=== PATIENT | female | born 1985 | race American Indian/Alaskan Native ===

== ENCOUNTER 2018-06-10 06:06 | Day surgery (SDC) | payer BC, OTHER ==
[~2018-06-10 06:06] MED LIST: LACTATED RINGERS 1,000 ML IV SCH; VERSED IV NR
[2018-06-10] MEDS ORDERED: NACL BACTERIOSTATIC INFILTRATI ONE (06:43)
--- NOTE | 2018-06-10 07:10 | Short Stay Summary ---
Short Stay Documentation Date of service: 06/10/18 Narrative H&P: Pt is a 33yo BF G0 LMP 02/23/18 presents for surgical evaluation of Dysfunctional Uterine Bleeding. Pelvic u/s showed an enlarged uterus 10 x 6 x 5cm with a thickened endometrium - pt unable to tolerate in-office endometrial biopsy. She is therefore scheduled for a Hysteroscopy with D&C. - History Principal diagnosis: Dysfunctional Uterine Bleeding H&P: obtained from office Past Medical History: hypertension Past Surgical History: No surgical history Social history: no significant social history, single - Allergies and Medications Current Medications: Allergies pineapple [Pineapple] Allergy (Verified 08/26/13 23:59) Swelling Home Medications Medication Instructions Recorded Confirmed Last Taken Type Clonidine 0.2 mg PO DAILY 05/15/18 06/10/18 06/09/18 History Iron 1 tab PO DAILY 05/15/18 06/10/18 1 Week Ago History ~06/03/18 Losartan-Hctz 100-25 mg Tab 100 mg PO DAILY 05/15/18 06/10/18 06/09/18 History Vitamin B12 1 tab PO DAILY 05/15/18 06/10/18 06/06/18 History amLODIPine 10 mg PO DAILY 05/15/18 06/10/18 06/10/18 05:00 History Active Medications Lactated Ringer's (Lactated Ringers) 1,000 mls @ 100 mls/hr IV DIRECT DAYA Midazolam HCl (Versed) 2 mg IV PREOP NR Stop: 06/10/18 23:59 - Physical exam General appearance: no acute distress Integumentary: no rash HEENT: Atraumatic Lungs: Clear to auscultation Breasts: deferred Heart: Regular rate Gastrointestinal: normal Female Genitourinary: deferred Rectal Exam: deferred Extremities: no ischemia Neurological: Normal gait, Normal speech - Brief post op/procedure progress note Date of procedure: 06/10/18 Pre-op diagnosis: Dysfunctional uterine bleeding Post-op diagnosis: same Procedure: 1. Hysteroscopy 2. Dilatation and curettage Anesthesia: MAC Findings: An enlarged uterus sounded to 10 cm. Lush amount of endometrial tissue and possible endometrial polyp. Surgeon: MYLES NGUYỄN Estimated blood loss: minimal Specimen disposition: to lab Condition: stable - Hospital course Hospital course: Unremarkable. - Disposition Condition at discharge: Good Disposition: DC-01 TO HOME OR SELFCARE - Discharge Diagnoses (1) DUB (dysfunctional uterine bleeding) Status: Chronic (2) Chronic blood loss anemia Status: Chronic Short Stay Discharge Plan Activity: no restrictions Diet: regular Follow up with: PRIMARY CARE, [Primary Care Provider] - 7 Days MYLES NGUYỄN MD [Staff Physician] - 14 Days Forms: Outpatient Surgery DC Inst. Prescriptions: Ferrous Sulfate [Feosol 325 MG tab] 325 mg PO BID #60 tablet Ibuprofen [Motrin] 800 mg PO Q8HR PRN #30 tablet PRN Reason: Pain, Moderate (4-6)
[2018-06-10] MEDS ORDERED: DIPRIVAN 10 MG/ML IV ONE (07:15)
[2018-06-10] MEDS ORDERED: XYLOCAINE MPF 2% ONE (07:15)
[2018-06-10] MEDS ORDERED: DILAUDID ONE (07:15)
[2018-06-10] MEDS ORDERED: DECADRON ONE (07:19)
[2018-06-10] MEDS ORDERED: ZOFRAN ONE (07:19)
--- NOTE | 2018-06-10 07:27 | Anesthesia Consultation ---
Anesthesia Consult and Med Hx Date of service: 06/10/18 - Airway Anesthetic Teeth Evaluation: Good ROM Head & Neck: Adequate Mental/Hyoid Distance: Adequate Mallampati Class: Class II Intubation Access Assessment: Good - Pulmonary Exam CTA: Yes - Cardiac Exam Cardiac Exam: No Murmur - Pre-Operative Health Status ASA Pre-Surgery Classification: ASA2 Proposed Anesthetic Plan: General - Cardiovascular System Hx Hypertension: Yes (2 MONTHS) - Hematic Hx Anemia: Yes - Other Systems Hx Obesity: Yes
--- NOTE | 2018-06-10 07:27 | Anesthesia Day of Surgery ---
Anesthesia Day of Surgery - Day of Surgery Patient Examined: Yes Patient H&P Reviewed: Yes Patient is NPO: Yes
[2018-06-10] MEDS ORDERED: DEMEROL IV PRN (07:34)
[2018-06-10] MEDS ORDERED: ZOFRAN IV PRN (07:34)
[2018-06-10] MEDS ORDERED: TORADOL IV PRN (07:34)
[2018-06-10 07:36] LABS: Hemoglobin 9.2 gm/dl (10.1-14.3)
[2018-06-10] MEDS ORDERED: SILVER NITRATE TP ONE (07:48)
[2018-06-10] MEDS ORDERED: PEPCID PO NR (08:00)
[2018-06-10] MEDS ORDERED: ANCEF/STERILE WATER 2 GM/20 ML 2 GM/20 ML SYRINGE IV NR (08:00)
[2018-06-10] MEDS ORDERED: NACL 0.9% IR ONE ×2 (09:10)
[2018-06-10] MEDS: DILAUDID IV PRN ×2 (09:42→09:54)
--- NOTE | 2018-06-10 09:58 | Operative Report ---
Operative Report Operative Report: PREOPERATIVE DIAGNOSIS: 1. Dysfunctional uterine bleeding 2. Chronic blood loss anemia POSTOPERATIVE DIAGNOSIS: Same OPERATIVE PROCEDURE: 1. Hysteroscopy 2. Dilatation and curettage. SURGEON: Albert Butcher MD ANESTHESIA: Gen. mask ANESTHESIOLOGIST: Dr. Miranda ESTIMATED BLOOD LOSS: Less than 10 mls FINDINGS: An enlarged uterus sounded to 10 cm. Lush amount of endometrial tissue and possible endometrial polyps. COMPLICATIONS: None COUNTS: Correct x3. PROCEDURE: After the patient was correctly identified as the patient, and after general anesthesia was administered, the patient was prepped and draped in the usual sterile fashion and placed in dorsal lithotomy position. First, the bladder was emptied using a straight catheter. Next, a speculum was placed in the vaginal vault and the anterior lip of the cervix was grasped using a single-tooth tenaculum. The uterus was sounded to 10 cm. The cervical os was sequentially dilated, and the hysteroscope was introduced into the cervical canal. Visualization of endometrial cavity showed lush amount of endometrial tissue and possible endometrial polyps. The hysteroscope was then removed and sharp curettage was performed yielding moderate amounts of endometrial tissue with minimal effort. At this point the procedure was considered complete. All instruments were removed from the vagina. The patient tolerated the procedure well and was transferred to the recovery room in stable condition.
--- NOTE | 2018-06-10 10:06 | Post Anesthesia Evaluation ---
- Post Anesthesia Evaluation Patient Participated: Yes Airway Patent: Yes Stable Respiratory Function: Yes Nausea/Vomiting: No Temp > 96.8F: Yes Pain Manageable: Yes Adequeate Hydration: Yes Anesthesia Complications: No
[2018-06-10 12:31] VITALS: BP 143/89
== END 2018-06-10 11:50 | disposition home or self-care (01) ==
LOC: OR 06:06
PROVIDERS: ATTEND Obstetrics & Gynecology
DX: C54.1 Malignant neoplasm of endometrium (principal); D50.0 Iron deficiency anemia secondary to blood loss (chronic); I10 Essential (primary) hypertension; E66.9 Obesity, unspecified; Z68.41 Body mass index [BMI] 40.0-44.9, adult; Z79.899 Other long term (current) drug therapy; Z91.018 Allergy to other foods
CPT/HCPCS: 36415; 58558; 81025; 84132; 85014; 85018; 88305; A4217; J0690; J1100; J1170; J1885; J2250; J2405; J2704; J7120

== ENCOUNTER 2018-09-08 11:41 | Outpatient (CLI) | payer BC ==
[2018-09-08 12:15] LABS: Blood Urea Nitrogen 13 mg/dL (7-17)
--- NOTE | 2018-09-08 18:15 | Cat Scan Report ---
FINAL REPORT PROCEDURE: CT abdomen and pelvis with contrast. TECHNIQUE: Computerized axial tomography of the abdomen and pelvis was performed after the IV injection of iodinated nonionic contrast. HISTORY: Abdominal pain. COMPARISON: No prior studies are available for comparison. FINDINGS: The lung bases are clear. There are no pleural effusions. The heart size is normal. The liver, pancreas and spleen appear normal. The gallbladder is present. There is no biliary dilatation. The adrenal glands are not enlarged. Both kidneys appear normal in size and configuration. The abdominal aorta has a normal caliber. There is no retroperitoneal adenopathy. The gastrointestinal tract is unremarkable. A normal appendix is visible. The bladder is unremarkable. The uterus has been removed. The regional skeleton appears intact. IMPRESSION: Previous hysterectomy. No evidence of acute disease in the abdomen or pelvis.
== END 2018-09-08 11:42 | disposition home or self-care (01) ==
LOC: CT 11:41
PROVIDERS: ATTEND Obstetrics & Gynecology Gynecologic Oncology
DX: R10.84 Generalized abdominal pain (principal); I10 Essential (primary) hypertension; E66.9 Obesity, unspecified; Z90.710 Acquired absence of both cervix and uterus
CPT/HCPCS: 36415; 74177; 82565; 84520; Q9967